=== PATIENT | female | born 1945 | race Caucasian/White ===

== ENCOUNTER 2017-09-11 14:17 | Emergency (ER) | payer MEDICARE ==
[~2017-09-11] VITALS: Ht 152.4 cm; Wt 62.0 kg
[~2017-09-11 14:17] MED LIST: CALCIUM PO; CALTRATE PLS; CRESTOR5 MG PO; FLEXERIL PO; LOSARTAN POT50 MG PO; NAPROSYN500 MG PO; NEXIUM40 M1 PO; OXYTROL TD; PRAVASTATIN10 MG PO; XALATAN 0.005%2.5 ML OU; [UNRECOGNIZED DRUG - OTHER] PO
[2017-09-11] MEDS ORDERED: PRAVASTATIN SOD20 MG PO (14:27)
[2017-09-11] MEDS ORDERED: GABAPENTIN100 MG PO (14:28)
[2017-09-11] MEDS ORDERED: TIMOLOL 0.5%5 ML OU (14:28)
[2017-09-11] MEDS ORDERED: LATANOPROST0.005 % OU (14:28)
[2017-09-11] MEDS ORDERED: LEFLUNOMIDE10 MG PO (14:33)
[2017-09-11] MEDS ORDERED: NAPROSYN500 MG PO (15:30)
[2017-09-11 15:37] VITALS: BP 157/73
== END 2017-09-11 15:37 | disposition home or self-care (01) ==
LOC: ED 14:17
DX: M75.21 Bicipital tendinitis, right shoulder (principal); I10 Essential (primary) hypertension; K21.9 Gastro-esophageal reflux disease without esophagitis; M06.9 Rheumatoid arthritis, unspecified

== ENCOUNTER 2018-06-23 21:51 | Emergency (ER) | payer MEDICARE ==
[~2018-06-23] VITALS: Ht 152.4 cm; Wt 62.0 kg
[~2018-06-23 21:51] MED LIST changes: +GABAPENTIN100 MG PO; +LATANOPROST0.005 % OU; +LEFLUNOMIDE10 MG PO; +PRAVASTATIN SOD20 MG PO; +TIMOLOL 0.5%5 ML OU
[2018-06-23 22:41] LABS: HEMATOCRIT 31.2 % (37.0-47.0); IMMATURE GRANULOCYTES 0.2 % (0.0-5.0); MEAN CELL VOLUME 76.3 fL CALC (80.0-100.0); MEAN CORPUSCULAR HGB 24.4 pG CALC (26.0-32.0); MEAN CORPUSCULAR HGB CONC 32.1 g/L CALC (32.0-36.0); NEUT# 4.72 thou/uL (2.00-7.15); RED BLOOD COUNT 4.09 mill/uL (4.20-5.60); RED CELL DISTRI WIDTH 16.4 % (11.5-15.5)
[2018-06-23 22:43] LABS: URINE BILIRUBIN - DIPSTICK NEGATIVE (NEGATIVE); URINE BLOOD DIPSTICK NEGATIVE (NEGATIVE); URINE COLOR YELLOW; URINE GLUCOSE - DIPSTICK NEGATIVE (NEGATIVE); URINE KETONE NEGATIVE (NEGATIVE); URINE LEUK ESTERASE NEGATIVE (NEGATIVE); URINE NITRITE - DIPSTICK NEGATIVE (Negative); URINE PH 5.5 (4.5-8.0); URINE PROTEIN - DIPSTICK NEGATIVE (NEG-TRACE); URINE UROBILINOGEN - DIPSTICK 0.2 E.U./dL (0.2)
[2018-06-23 22:44] LABS: URINE CLARITY CLEAR
[2018-06-23 22:57] LABS: ALKALINE PHOSPHATASE 115 u/l (38-126); ANION GAP 14 (6-22 (CALC)); BILIRUBIN, TOTAL 0.5 mg/dL (0.0-1.4); BUN 24 mg/dL (8-23); BUN/CREATININE RATIO 24 (12-20 (CALC)); CARBON DIOXIDE 25 mmol/l (22-30); CHLORIDE 107 mmol/l (95-108); GFR 54 ML/MIN (>=60 (CALC)); GFR FOR AFR.AMER. > 60 ML/MIN (>=60 (CALC)); SGOT/AST 29 u/l (9-36); SGPT/ALT 25 u/l (11-66); SODIUM 143 mmol/l (137-146)
[2018-06-23 23:09] LABS: MYOGLOBIN 77 ng/mL (0 - 62)
[2018-06-23 23:50] VITALS: BP 152/60
== END 2018-06-24 00:03 | disposition home or self-care (01) ==
LOC: ED 21:51
PROVIDERS: Emergency Medicine
DX: I10 Essential (primary) hypertension (principal); Z98.49 Cataract extraction status, unspecified eye; M06.9 Rheumatoid arthritis, unspecified; E78.00 Pure hypercholesterolemia, unspecified

== ENCOUNTER → 2018-12-30 | Outpatient (REF) | payer MEDICARE ==
[~2018-12-30] VITALS: Ht 152.4 cm; Wt 62.6 kg
[~2018-12-30] MED LIST changes: +AMLODIPINE5 MG PO; +COZAAR100 MG PO; +HYDRALAZINE25 MG PO; -LOSARTAN POT50 MG PO; +OXYBUTYNIN EX; +TOPROL XL50 MG PO
[2018-12-30 15:04] VITALS: BP 121/65
== END | disposition home or self-care (01) ==
LOC: ORM 11:00 → PO 11:09
PROVIDERS: ATTEND Surgery
DX: Z01.818 Encounter for other preprocedural examination (principal); K21.9 Gastro-esophageal reflux disease without esophagitis; I10 Essential (primary) hypertension; I25.10 Atherosclerotic heart disease of native coronary artery without angina pectoris; E78.00 Pure hypercholesterolemia, unspecified; Z98.890 Other specified postprocedural states; Z96.651 Presence of right artificial knee joint; R32 Unspecified urinary incontinence

== ENCOUNTER 2019-01-12 07:21 | Day surgery (SDC) | payer MEDICARE ==
[~2019-01-12] VITALS: Ht 152.4 cm; Wt 62.6 kg
[2019-01-12 10:41] VITALS: BP 112/68
== END 2019-01-12 10:35 | disposition home or self-care (01) ==
LOC: ENDO 07:21 → ORM 10:00 → ENDO 10:35
PROVIDERS: ATTEND Surgery
PROC: 0DB78ZX Excision of Stomach, Pylorus, Via Natural or Artificial Opening Endoscopic, Diagnostic (ICD-10-PCS; principal; 2019-01-12)
DX: K21.9 Gastro-esophageal reflux disease without esophagitis (principal); K44.9 Diaphragmatic hernia without obstruction or gangrene; K29.50 Unspecified chronic gastritis without bleeding; I10 Essential (primary) hypertension; E78.5 Hyperlipidemia, unspecified; M06.9 Rheumatoid arthritis, unspecified; G62.9 Polyneuropathy, unspecified; Z79.899 Other long term (current) drug therapy

== ENCOUNTER 2019-09-19 17:59 | Emergency (ER) | payer MEDICARE ==
[~2019-09-19] VITALS: Ht 152.4 cm; Wt 63.5 kg
[2019-09-19] MEDS ORDERED: KEFLEX500 M1 PO (19:42)
[2019-09-19 19:50] VITALS: BP 143/66
== END 2019-09-19 19:52 | disposition home or self-care (01) ==
LOC: ED 17:59
PROC: 0HQGXZZ Repair Left Hand Skin, External Approach (ICD-10-PCS; principal; 2019-09-19)
DX: S61.213A Laceration without foreign body of left middle finger without damage to nail, initial encounter (principal); W22.03XA Walked into furniture, initial encounter; I10 Essential (primary) hypertension; E78.00 Pure hypercholesterolemia, unspecified; M06.9 Rheumatoid arthritis, unspecified; K21.9 Gastro-esophageal reflux disease without esophagitis; Z23 Encounter for immunization